=== PATIENT | female | born 1980 | race African-American/Black ===

== ENCOUNTER 2020-11-22 23:04 | Inpatient (IN) | payer OTHER ==
[2020-11-22] MEDS: ELECTROLYTE-148 SOLN 1,000 ML IV SCH (23:20)
[2020-11-23 00:54] LABS: BASO % 0.4 % (0-2.0); EOS % 0.5 % (0-4.5); HEMATOCRIT 35.9 % (32.4-45.2); HEMOGLOBIN 12.1 GM/dL (10.7-15.3); LYMPH % 16.4 % (8-40); MCH 29.3 pg (25.7-33.7); MCHC 33.6 g/dl (32.0-36.0); MEAN CELL VOLUME 87.3 fl (80-96); MEAN PLT VOLUME 10.9 fl (7.5-11.1); MONO % 7.4 % (3.8-10.2); NEUT % 75.3 % (42.8-82.8); PLATELET COUNT 168 K/MM3 (134-434); RBC 4.11 M/mm3 (3.60-5.2); RDW 15.1 % (11.6-15.6); WHITE BLOOD COUNT 13.4 K/mm3 (4.0-10.0)
[2020-11-23 01:02] LABS: INR 0.92 (0.83-1.09); PROTHROMBIN TIME (PATIENT) 11.3 SEC (9.7-13.0)
[2020-11-23 01:11] LABS: BLOOD UREA NITROGEN 8.3 mg/dL (7-18); CALCIUM 9.1 mg/dL (8.5-10.1)
[2020-11-23 01:15] LABS: CREATININE 0.8 mg/dL (0.55-1.3)
[2020-11-23] MEDS ORDERED: BUTORPHANOL TARTRATE 2 MG/ML VIAL ONE (01:18)
[2020-11-23] MEDS ORDERED: PROMETHAZINE HCL 25 MG/1 ML VIAL ONE (01:19)
[2020-11-23] MEDS ORDERED: BUTORPHANOL TARTRATE 1 MG/ML VIAL IVPB ONE (01:39)
[2020-11-23] MEDS ORDERED: PROMETHAZINE HCL 25 MG/1 ML VIAL IVPUSH ONE (01:39)
[2020-11-23 02:08] VITALS: BMI 28.1
[2020-11-23] MEDS: ELECTROLYTE-148 SOLN 1,000 ML IV SCH (05:00)
[2020-11-23] MEDS ORDERED: FENTANYL/BUPIVACAINE/NS/PF - PCEA - 50 ML DISP.SYRIN EP ONE ×2 (05:08→09:42)
[2020-11-23] MEDS ORDERED: PCA PUMP NR ONE ×2 (05:16→07:45)
[2020-11-23] MEDS ORDERED: BUPIVACAINE HCL/PF 0.25% (2.5MG/ML) 10 ML VIAL ONE (05:18)
[2020-11-23] MEDS ORDERED: OXYTOCIN 30 UNITS in 0.9% NS 30 UNIT/500 ML INFUS.BAG IVPB SCH (05:30)
[2020-11-23] MEDS ORDERED: NALOXONE HCL 0.4 MG/ML VIAL IVPUSH PRN (05:40)
[2020-11-23] MEDS ORDERED: FENTANYL/BUPIVACAINE/NS/PF - PCEA - 50 ML DISP.SYRIN EP SCH ×2 (05:45→07:46)
[2020-11-23] MEDS ORDERED: OXYTOCIN 20 UNITS in 0.9% NS 20 UNIT/1,000 ML INFUS.BAG IV ONE (10:00)
[2020-11-23] MEDS ORDERED: WITCH HAZEL 50% (TUCKS) 40 PAD/JAR PAD TP PRN (12:58)
[2020-11-23] MEDS ORDERED: BENZOCAINE 28 GM HEMORRHOIDAL OINTMENT TP PRN (12:58)
[2020-11-23] MEDS ORDERED: METHYLERGONOVINE MALEATE 0.2 MG/1 ML AMP IM PRN (12:58)
[2020-11-23] MEDS ORDERED: BENZOCAINE 20% 57 GM BOTTLE TP PRN (12:58)
[2020-11-23] MEDS ORDERED: BISACODYL 10 MG SUPP.RECT RC PRN (12:58)
[2020-11-23] MEDS ORDERED: OXYTOCIN 20 UNITS in 0.9% NS 20 UNIT/1,000 ML INFUS.BAG IV SCH (13:00)
[2020-11-23 13:37] LABS: CORD BASE EXCESS -6.8 mmol/L (0-2); CORD HCO3 19.5 mmHg (20-29); CORD PCO2 41.7 mmHg (30-78); CORD pH 7.287 (7.14-7.44)
[2020-11-23 13:39] LABS: CORD BASE EXCESS -6.7 mmol/L (0-2); CORD HCO3 22.7 mmHg (20-29); CORD PCO2 60.9 mmHg (30-78); CORD pH 7.189 (7.14-7.44)
[2020-11-23] MEDS ORDERED: IBUPROFEN 600 MG TABLET (FP) PO ONE (14:05)
[2020-11-23] MEDS ORDERED: ACETAMINOPHEN 325 MG TABLET (FP) ONE (14:06)
[2020-11-23] MEDS: ACETAMINOPHEN 325 MG TABLET (FP) PO PRN ×2 (14:15→23:43)
[2020-11-23] MEDS: IBUPROFEN 600 MG TABLET (FP) PO PRN ×2 (14:15→23:43)
[2020-11-24] MEDS: ACETAMINOPHEN 325 MG TABLET (FP) PO PRN ×4 (06:17→23:54)
[2020-11-24] MEDS: IBUPROFEN 600 MG TABLET (FP) PO PRN ×4 (06:18→23:55)
[2020-11-24 08:16] LABS: POC NITRAZINE POS
[2020-11-24] MEDS: PRENATAL VITAMINS W/ FOLIC ACID TABLET (FP) PO SCH (09:48)
[2020-11-24 10:55] LABS: BASO % 0.4 % (0-2.0); EOS % 0.4 % (0-4.5); HEMATOCRIT 26.1 % (32.4-45.2); HEMOGLOBIN 8.7 GM/dL (10.7-15.3); LYMPH % 8.1 % (8-40); MCH 29.9 pg (25.7-33.7); MCHC 33.4 g/dl (32.0-36.0); MEAN CELL VOLUME 89.4 fl (80-96); MEAN PLT VOLUME 10.4 fl (7.5-11.1); MONO % 6.3 % (3.8-10.2); NEUT % 84.8 % (42.8-82.8); PLATELET COUNT 146 K/MM3 (134-434); RBC 2.92 M/mm3 (3.60-5.2); RDW 15.4 % (11.6-15.6); WHITE BLOOD COUNT 16.8 K/mm3 (4.0-10.0)
[2020-11-24] MEDS ORDERED: SENNOSIDES/DOCUSATE COMBO (SENNA PLUS) TABLET (UD) PO PRN (22:00)
[2020-11-25] MEDS: IBUPROFEN 600 MG TABLET (FP) PO PRN (10:04)
[2020-11-25] MEDS: ACETAMINOPHEN 325 MG TABLET (FP) PO PRN (10:04)
[2020-11-25] MEDS: PRENATAL VITAMINS W/ FOLIC ACID TABLET (FP) PO SCH (10:05)
[2020-11-25 10:23] VITALS: BP 105/67; PULSE 100; TEMP 98.7
[2020-11-25 13:05] LABS: BASO % 0.4 % (0-2.0); EOS % 1.1 % (0-4.5); HEMATOCRIT 26.1 % (32.4-45.2); HEMOGLOBIN 8.7 GM/dL (10.7-15.3); MCH 29.8 pg (25.7-33.7); MCHC 33.1 g/dl (32.0-36.0); MEAN CELL VOLUME 90.1 fl (80-96); MEAN PLT VOLUME 9.8 fl (7.5-11.1); NEUT % 83.5 % (42.8-82.8); PLATELET COUNT 172 K/MM3 (134-434); RDW 15.5 % (11.6-15.6); WHITE BLOOD COUNT 14.6 K/mm3 (4.0-10.0)
== END 2020-11-25 14:46 | disposition home or self-care (01) | DRG 560 ==
LOC: JLDR 23:04 → J3W 11-23 15:10
PROVIDERS: ADMIT Obstetrics & Gynecology; ATTEND Obstetrics & Gynecology
PROC: 10E0XZZ Delivery of Products of Conception, External Approach (ICD-10-PCS; principal; 2020-11-22)
PROC: 0W8NXZZ Division of Female Perineum, External Approach (ICD-10-PCS; 2020-11-22)
PROC: 0KQM0ZZ Repair Perineum Muscle, Open Approach (ICD-10-PCS; 2020-11-22)
DX: O24.424 Gestational diabetes mellitus in childbirth, insulin controlled (principal); O99.12 Other diseases of the blood and blood-forming organs and certain disorders involving the immune mechanism complicating childbirth; D68.8 Other specified coagulation defects; O69.81X0 Labor and delivery complicated by cord around neck, without compression, not applicable or unspecified; O70.1 Second degree perineal laceration during delivery; O90.81 Anemia of the puerperium; D64.9 Anemia, unspecified; Z3A.39 39 weeks gestation of pregnancy; Z37.0 Single live birth; Z79.01 Long term (current) use of anticoagulants; Z88.1 Allergy status to other antibiotic agents; Z91.040 Latex allergy status
CPT/HCPCS: 36415; 36600; 59409; 80048; 82803; 82962; 83986-QW; 85025; 85610; 85730; 86780; 86850; 86900; 86901; 87389; C9803; U0003